=== PATIENT | female | born 1950 ===

== ENCOUNTER 2017-11-10 08:56 | Inpatient (IN) | payer OTHER ==
[~2017-11-10] VITALS: Ht 154.9 cm; Wt 47.6 kg
[2017-11-10] MEDS ORDERED: NEURONTIN600 MG PO (09:09)
[2017-11-10] MEDS ORDERED: BACLOFEN20 MG PO (09:09)
[2017-11-10] MEDS ORDERED: IRBESARTAN PO (09:10)
[2017-11-10] MEDS ORDERED: SIMVALTA (09:11)
[2017-11-10] MEDS ORDERED: ATENOLOL25 MG PO (09:11)
[2017-11-17] MEDS ORDERED: ZANTAC300 MG PO (13:52)
[2017-11-17] MEDS ORDERED: INTESTINEX680 M1 PO (13:52)
== END 2017-11-17 14:22 | disposition home or self-care (01) | DRG 392 ==
LOC: ER 08:56 → SEC-K 18:13 → MEDI 18:13 → MEDJ 11-11 20:24 → MEDI 11-11 22:13
PROC: BW25Y0Z Computerized Tomography (CT Scan) of Chest, Abdomen and Pelvis using Other Contrast, Unenhanced and Enhanced (ICD-10-PCS; principal; 2017-11-10)
DX: A09 Infectious gastroenteritis and colitis, unspecified (principal); I11.9 Hypertensive heart disease without heart failure; G50.0 Trigeminal neuralgia; E86.0 Dehydration